=== PATIENT | female | born 1955 | race Caucasian/White ===

== ENCOUNTER 2019-04-08 22:36 | Emergency (ER) | payer OTHER, MEDICAID ==
[~2019-04-08] VITALS: Ht 165.1 cm; Wt 81.2 kg
--- NOTE | 2019-04-08 22:40 | NUR ---
DR. SILVA AT BEDSIDE FOR MSE
[2019-04-08] MEDS ORDERED: IV NORMAL SALINE 1000 ML BAG IV ONE (22:45)
[2019-04-08] MEDS ORDERED: [UNRECOGNIZED DRUG - REMARK] (22:52)
[2019-04-08] MEDS ORDERED: [UNRECOGNIZED DRUG - REMARK] (22:52)
[2019-04-08] MEDS ORDERED: [UNRECOGNIZED DRUG - REMARK] (22:52)
[2019-04-08] MEDS ORDERED: CARV3.12 PO (22:52)
[2019-04-08] MEDS ORDERED: [UNRECOGNIZED DRUG - REMARK] (22:52)
[2019-04-08] MEDS ORDERED: [UNRECOGNIZED DRUG - REMARK] (22:52)
[2019-04-08 22:56] LABS: BASOPHILS % (AUTO) 0.4 % (0.0-2.0); HEMATOCRIT 29.8 % (31.2-41.9); HEMOGLOBIN 9.6 g/dL (10.9-14.3); LYMPHOCYTES # (AUTO) 0.2 K/uL (20.0-40.0); LYMPHOCYTES % (AUTO) 1.5 % (20.5-51.5); MEAN CORPUSCULAR HEMOGLOBIN 28.3 uug (24.7-32.8); MEAN CORPUSCULAR HGB CONC 32 g/dL (32.3-35.6); MEAN CORPUSCULAR VOLUME 87.2 fL (75.5-95.3); MONOCYTES # (AUTO) 0.6 K/uL (2.0-10.0); MONOCYTES % (AUTO) 5.1 % (0.0-11.0); NEUTROPHILS # (AUTO) 11.8 K/uL (1.8-8.9); PLATELET COUNT (AUTO) 191 K/uL (179-408); RED BLOOD CELL COUNT(AUTO) 3.41 MIL/uL (3.63-4.92); WHITE BLOOD COUNT (AUTO) 12.6 K/uL (3.8-11.8)
[2019-04-08 23:10] LABS: BILIRUBIN,DIRECT 0.3 mg/dL (0.0-0.2); BILIRUBIN,TOTAL 1.1 mg/dL (0.2-1.0); CREATININE 1.3 mg/dL (0.6-1.3); POTASSIUM 4.8 mmol/L (3.5-5.1)
--- NOTE | 2019-04-09 | NUR ---
PT BACK FROM CT SCAN
[2019-04-09 00:02] LABS: *BILIRUBIN,URIN 1+ (NEGATIVE); *BLOOD, URINE 2+ (NEGATIVE); *CLARITY,URINE CLOUDY (CLEAR); *COLOR,URINE AMBER (YELLOW); *KETONES,URINE TRACE (NEGATIVE); *UROBILINOGEN,URINE 0.2 E.U./dl (NORMAL); LEUKOCYTE ESTERASE ,URINE TRACE (NEGATIVE); NITRITE, URINE NEGATIVE (NEGATIVE); PH,URINE 5.5 (5.0-8.0); UGLUCOSE 2+ (NEGATIVE)
[2019-04-09 00:14] LABS: RBC,URINE 20-50 /HPF (0-3)
[2019-04-09 00:15] LABS: BACTERIA,URINE MANY /HPF (NONE SEEN); SQUAMOUS EPITHELIAL CELL,UR MODERATE /HPF (NONE SEEN)
[2019-04-09] MEDS ORDERED: VANCOMYCIN 1G/D5W 200 ML PIGGYBACK IV ONE (00:45)
[2019-04-09] MEDS ORDERED: PIPERACILLIN SODIUM/TAZOBACTAM 3.375 G in IV DEXTROSE 5% 50 ML IV ONE (00:45)
[2019-04-09] MEDS ORDERED: CEFTRIAXONE 1 G in IV DEXTROSE 5% 50 ML IV ONE (00:45)
[2019-04-09] MEDS ORDERED: IV NORMAL SALINE 500 ML IV ONE (00:45)
[2019-04-09] MEDS ORDERED: PIPERACILLIN/TAZOBACTAM/D5W 50 ML IV ONE (01:01)
--- NOTE | 2019-04-09 01:08 | NUR ---
Dr Todd speaking with Zia Sandoval MD from [facility]
[2019-04-09] MEDS ORDERED: ONDANSETRON 4 MG/2 ML VIAL ONE (01:31)
[2019-04-09] MEDS ORDERED: VANCOMYCIN IV 200 ML ONE (01:40)
--- NOTE | 2019-04-09 02:01 | NUR ---
Spoke with Diana Bergeron Employee Communications Specialist for [facility]. Gave Transfer info. Patient will be going to room [address] accepting MD Dr Padilla.
--- NOTE | 2019-04-09 02:17 | NUR ---
Called [facility] for transport to [facility]. ETA is 1.5HR with trip #[id number]
--- NOTE | 2019-04-09 03:02 | NUR ---
Gave SBAR report to nurse Maryan from [place] [phone].
[2019-04-09] MEDS ORDERED: ONDANSETRON 4 MG/2 ML VIAL IV ONE (03:15)
--- NOTE | 2019-04-09 03:34 | NUR ---
[facility].
== END 2019-04-09 03:41 | disposition short-term general hospital (02) ==
LOC: ER 22:37
DX: R53.1 Weakness (principal); N18.9 Chronic kidney disease, unspecified; E11.9 Type 2 diabetes mellitus without complications; I50.9 Heart failure, unspecified; Z79.899 Other long term (current) drug therapy; Z79.84 Long term (current) use of oral hypoglycemic drugs
CPT/HCPCS: 36415 ×2; 70450; 71045; 80048; 80076; 81000; 81001; 82550; 83605; 83690; 83880; 84484; 85025; 87086; 93005; 96365; 96366; 96367; 96375; 99285; J2405; J2543; J3370; 70030-TC; 87077; A4663; J7030; J7040